=== PATIENT | female | born 1980 | race Caucasian/White ===

== ENCOUNTER 2016-11-04 22:13 | Emergency (ER) | payer MEDICAID, OTHER ==
[~2016-11-04] VITALS: Wt 73.5 kg
--- NOTE | 2016-11-05 00:39 | ERD ---
ER Documentation Chief Complaint Date/Time DATE: 11/05/16 TIME: 00:36 Chief Complaint Vaginal Bleed. poss HPI 36-year-old female presents to emergency department for complaint of vaginal bleeding that started today. Patient's LMP was 09 05 2016. Patient states that she may be . Patient passed out some tissue. Patient is complaining of pelvic cramping pain 4/10 scale, is accompanying the vaginal bleeding. Patient denies any cramping. Patient denies any fever or chills. Patient denies hematuria or dysuria. ROS All systems reviewed and are negative except as per history of present illness. Medications Home Meds Reported Medications [none] Unknown Strength No Conflict Check 11/05/16 Allergies Allergies: Coded Allergies: No Known Allergy (Unverified , 11/04/16) PMhx/Soc Medical and Surgical Hx: pt denies Medical Hx History of Surgery: No Anesthesia Reaction: No Hx Neurological Disorder: No Hx Respiratory Disorders: No Hx Cardiac Disorders: No Hx Psychiatric Problems: No Hx Alcohol Use: No Hx Substance Use: No Hx Tobacco Use: No Smoking Status: Never smoker FmHx Family History: No coronary disease, No diabetes, No other Physical Exam Vitals Vital Signs Date Time Temp Pulse Resp B/P Pulse Ox O2 Delivery O2 Flow Rate FiO2 11/04/16 22:32 98.5 85 20 172/103 99 Physical Exam GENERAL: The patient is well developed and appropriate for usual state of health, in no apparent distress. CHEST: Clear to auscultation bilaterally. There are no rales, wheezes or rhonchi. HEART: Regular rate and rhythm. No murmurs, clicks, rubs or gallops. No S3 or S4. ABDOMEN: Soft, nontender and nondistended. Good bowel sounds. No rebound or guarding. No gross peritonitis. No gross organomegaly or masses. No Rodriguez sign or McBurney point tenderness. BACK: No midline or flank tenderness. EXTREMITIES: Equal pulses bilaterally. There is no peripheral clubbing, cyanosis or edema. No focal swelling or erythema. Full range of motion. Grossly neurovascularly intact. NEURO: Alert and oriented. Cranial nerves 2-12 intact. Motor strength in all 4 extremities with 5/5 strength. Sensation grossly intact. Normal speech and gait. SKIN: There is no apparent rash or petechia. The skin is warm and dry. HEMATOLOGIC AND LYMPHATIC: There is no evidence of excessive bruising or lymphedema. No gross cervical, axillary, or inguinal lymphadenopathy. Result Diagram: 11/05/16 0025 Results 24 hrs Laboratory Tests Test 11/05/16 00:25 White Blood Count 10.210^3/ul Red Blood Count 4.3010^6/ul Hemoglobin 11.8g/dl Hematocrit 34.1% Mean Corpuscular Volume 79.3fl Mean Corpuscular Hemoglobin 27.4pg Mean Corpuscular Hemoglobin Concent 34.6g/dl Red Cell Distribution Width 13.9% Platelet Count 29938^3/UL Mean Platelet Volume 12.0fl Neutrophils % 74.5% Lymphocytes % 18.2% Monocytes % 6.2% Eosinophils % 0.6% Basophils % 0.2% Nucleated Red Blood Cells % 0.0/100WBC Neutrophils # 7.610^3/ul Lymphocytes # 1.910^3/ul Monocytes # 0.610^3/ul Eosinophils # 0.110^3/ul Basophils # 0.010^3/ul Nucleated Red Blood Cells # 0.010^3/ul Urine Color LT. RED Urine Clarity CLEAR Urine pH 5.0 Urine Specific [place] <=1.005 Urine Ketones NEGATIVE Urine Nitrite NEGATIVE Urine Bilirubin NEGATIVE Urine Urobilinogen 0.2 E.U./dL Urine Leukocyte Esterase 2+ Urine Microscopic RBC >200/HPF Urine Microscopic WBC 25-50/HPF Urine Squamous Epithelial Cells FEW Urine Bacteria FEW Urine Red Blood Cell Casts Urine Hemoglobin 3+ Urine Glucose NEGATIVE% Urine Total Protein 2+ Beta HCG, Quantitative 482783.0mIU/ml Current Medications Medications (Trade) Dose Ordered Sig/Judah Route PRN Reason Start Time Stop Time Status Last Admin Dose Admin Ceftriaxone Sodium (Rocephin) 50 ml @ 100 mls/hr ONCE ONCE IVPB 11/05/16 04:00 11/05/16 04:29 Rocephin was given for treatment of urinary tract infection. Tolerated medication well. PROCEDURE: Obstetrical ultrasound. CLINICAL INDICATION: Vaginal bleeding. TECHNIQUE: Multiple sonographic images of the pelvis were obtained utilizing a transabdominal technique. The images were reviewed on a PACS workstation. COMPARISON: None. FINDINGS: The uterus is visualized and measures 10.2 x 5.7 x 6.3 cm. There is a heterogeneous fibroid measuring 2.3 x 1.9 x 2.8 cm. The endometrial echo complex is thickened and heterogeneous measuring 13.7 cm with evidence of color flow. No intrauterine is identified. There is no evidence for free fluid. The right ovary has a normal echotexture and measures 3.6 x 2.0 x 2.4 cm. The left ovary has a normal echotexture and measures 3.1 x 2.4 x 2.3 cm. There is normal flow to both ovaries. No adnexal masses are identified. IMPRESSION: No intrauterine is identified. Clinical beta-hCG correlation and follow-up is recommended. Thickened and heterogeneous endometrium with color flow which could suggest retained products. Uterine fibroid. .Art King MD, Date Time Electronically viewed and signed by .Art King MD, on 11/05/2016 02:27 .T/ CC: BELLO LOU [employer] Procedures/MDM Medical Decision Making: Patients vaginal bleeding is most likely consistent of spontaneous , patient passed the tissue, upon evaluation of the tissue, consistent with tissue with , was sent to pathology. Patient does not show any evidence of hypovolemic shock. Patients hemoglobin and hematocrit is stable. There is low suspicion for ectopic . Patient' s pain is controlled at this time. AZAR results show knowing. Urine possibly consistent with spontaneous with some possible retained product of conception from the spontaneous . BetaHCG Quantitative is still elevated since patient just passed out the tissue The patient is Rh+, does not need RhoGAM this time. There is no signs of symptoms of dehydration. There is low suspicion for sepsis. Patient appears well and is hemodynamically stable. Incidental finding of a uterine fibroid was also seen. Disposition: Home. Condition: Stable Decision: Keflex, Tylenol Instructions: Patient is advised to do bed rest, avoid heavy lifting, and avoid having sex until cleared by OB doctor. Patient is advised to follow up with OB doctor or here at the ER in 48 hours for reevaluation of symptoms, repeat beta HCG quantitative and ultrasound. Patient is advised that is symptoms are worst, severe bleeding, dizziness, severe abdominal pain, fever, worst signs and symptoms to return to the emergency department immediately. Departure Diagnosis: Primary Impression: Spontaneous Additional Impressions: UTI (urinary tract infection) Urinary tract infection type: acute cystitis Hematuria presence: with hematuria Qualified Code: N30.01 - Acute cystitis with hematuria Uterine fibroid Uterine leiomyoma location: unspecified location Qualified Code: D25.9 - Uterine leiomyoma, unspecified location Condition: Stable Patient Instructions: Miscarriage, Spontaneous (Completed), Understanding Urinary Tract Infections (UTIs) Additional Instructions: Patient is advised to do bed rest, avoid heavy lifting, and avoid having sex until cleared by OB doctor. Patient is advised to follow up with OB doctor or here at the ER in 48 hours for reevaluation of symptoms, repeat beta HCG quantitative and ultrasound. Patient is advised that is symptoms are worst, severe bleeding, dizziness, severe abdominal pain, fever, worst signs and symptoms to return to the emergency department immediately. BELLO LOU NP Nov 05, 2016 00:39
[2016-11-05 01:35] LABS: ADD UMIC YES; UR BILIRUBIN (Dip) NEGATIVE (NEGATIVE); UR BLOOD (Dip) 3+ (NEGATIVE); UR CLARITY CLEAR (CLEAR); UR COLOR LT. RED (YELLOW); UR GLUCOSE (Dip) NEGATIVE (NEGATIVE); UR KETONES (Dip) NEGATIVE (NEGATIVE); UR LEUKOCYTE ESTERASE (Dip) 2+ (NEGATIVE); UR NITRITE (Dip) NEGATIVE (NEGATIVE); UR TOTAL PROTEIN (Dip) 2+ (NEGATIVE); UR UROBILINOGEN (Dip) 0.2 E.U./dL (0.1-1.0)
[2016-11-05 01:36] LABS: ADD SCAN DIFF NO
[2016-11-05 01:38] LABS: BASOPHILS % 0.2 % (0.0-2.0); EOSINOPHILS # 0.1 10^3/ul (0.0-0.5); EOSINOPHILS % 0.6 % (0.0-7.0); HEMATOCRIT 34.1 % (37.0-47.0); HEMOGLOBIN 11.8 g/dl (12.0-16.0); LYMPHOCYTES # 1.9 10^3/ul (0.8-2.9); LYMPHOCYTES % 18.2 % (15.0-51.0); MEAN CORPUSCULAR HEMOGLOBIN 27.4 pg (29.0-33.0); MEAN CORPUSCULAR HGB CONC 34.6 g/dl (32.0-37.0); MEAN CORPUSCULAR VOLUME 79.3 fl (82.0-101.0); MONOCYTE # 0.6 10^3/ul (0.3-0.9); MONOCYTES % 6.2 % (0.0-11.0); NEUTROPHIL # 7.6 10^3/ul (1.6-7.5); NEUTROPHILS % 74.5 % (39.0-77.0); PLATELET COUNT 262 10^3/UL (140-415); RED CELL DISTRIBUTION WIDTH 13.9 % (11.5-14.5); WHITE BLOOD COUNT 10.2 10^3/ul (4.8-10.8)
[2016-11-05 01:52] LABS: UR BACTERIA FEW; UR SQUAMOUS EPITHELIAL CELL FEW; URINE RBCS >200 /HPF (0)
--- NOTE | 2016-11-05 02:27 | RADRPT ---
PROCEDURE: Obstetrical ultrasound. CLINICAL INDICATION: Vaginal bleeding. TECHNIQUE: Multiple sonographic images of the pelvis were obtained utilizing a transabdominal suad hnique. The images were reviewed on a PACS workstation. COMPARISON: None. FINDINGS: The uterus is visualized and measures 10.2 x 5.7 x 6.3 cm. There is a heterogeneous fibroid measurin g 2.3 x 1.9 x 2.8 cm. The endometrial echo complex is thickened and heterogeneous measuring 13.7 cm with evidence of color flow. No intrauterine is identified. There is no evidence for free fluid. The right ovary has a normal echotexture and measures 3.6 x 2. 0 x 2.4 cm. The left ovary has a normal echotexture and measures 3.1 x 2.4 x 2.3 cm. There is norm al flow to both ovaries. No adnexal masses are identified. IMPRESSION: No intrauterine is identified. Clinical beta-hCG correlation and follow-up is recommended . Thickened and heterogeneous endometrium with color flow which could suggest retained products. Uterine fibroid. .Art King MD, MD Date Time Electronically viewed and signed by .Art King MD, MD on 11/05/2016 02:27 .T/
[2016-11-05] MEDS ORDERED: ACET500C5 PO (03:39)
[2016-11-05] MEDS ORDERED: CEPH-443 PO (03:39)
[2016-11-05] MEDS ORDERED: CEFTRIAXONE 1 GM/50 ML (PMX) 50 ML IVPB ONE (04:00)
== END 2016-11-05 04:35 | disposition home or self-care (01) ==
LOC: FTE 22:13
DX: O03.9 Complete or unspecified spontaneous abortion without complication (principal); O23.10 Infections of bladder in pregnancy, unspecified trimester; O34.10 Maternal care for benign tumor of corpus uteri, unspecified trimester; R10.2 Pelvic and perineal pain; Z3A.00 Weeks of gestation of pregnancy not specified
CPT/HCPCS: 36415; 76801; 81001; 84702; 85025; 86900; 86901; 88305; 96374; Z7502